=== PATIENT | male | born 1995 | race Caucasian/White ===

== ENCOUNTER 2019-05-03 06:30 | Day surgery (SDC) | payer OTHER ==
[~2019-05-03 06:30] MED LIST: CEFAZOLIN SODIUM IN 0.9 % NACL 2 GM/100 ML BAG IV ONE
[2019-05-03] MEDS ORDERED: fentaNYL 100 MCG/2 ML VIAL IVP ONE (06:31)
[2019-05-03] MEDS ORDERED: PROPOFOL 200 MG/20 ML VIAL IVP ONE (06:31)
[2019-05-03] MEDS ORDERED: ACETAMINOPHEN 1,000 MG/100 ML 100 ML IV ONE (06:31)
[2019-05-03] MEDS ORDERED: LIDOCAINE-MPF 2% 5 ML VIAL IM ONE (06:31)
[2019-05-03] MEDS ORDERED: GLYCOPYRROLATE 1 MG/5 ML VIAL IVP ONE (06:31)
[2019-05-03] MEDS ORDERED: DEXAMETHASONE 4 MG/ML VIAL IVP ONE (06:31)
[2019-05-03] MEDS ORDERED: LACTATED RINGERS 1,000 ML IV ONE (06:46)
--- NOTE | 2019-05-03 07:21 | ANESTHESIA ---
Pre-Anesthesia VS, & Labs - Diagnosis symptomatic right ankle hardware - Procedure right ankle hardware removal Vital Signs: Temp Pulse Resp BP Pulse Ox 36.9 C 81 20 128/60 97 05/03/19 06:46 05/03/19 06:46 05/03/19 06:46 05/03/19 06:46 05/03/19 06:46 Height 6 ft 2 in Weight (kg) 90.72 kg Home Medications and Allergies Home Medications: Ambulatory Orders No Known Home Medications 04/25/19 No Known Home Medications 04/25/19 Allergies/Adverse Reactions: Allergies Allergy/AdvReac Type Severity Reaction Status Date / Time No Known Drug Allergies Allergy Verified 05/03/19 06:55 Anes History & Medical History - Anesthetic History Anesthesia Complications: reports: No previous complications Family history of Anesthesia Complications: Denies Family history of Malignant Hyperthermia: Denies - Medical History Cardiovascular: reports: None Pulmonary: reports: None Gastrointestinal: reports: None Urinary: reports: None Musculoskeletal: reports: Other Endocrine/Autoimmune: reports: None Blood Disorders: reports: None Skin: reports: None Smoking Status: Never smoker Psychosocial: reports: Alcohol (one glass x2 /week) - Surgical History Eyes Ears Nose Throat (EENT): Myringotomy (tubes), Tonsil/Adenoidectomy Orthopedic: Other Exam General: Alert, Oriented x3, Cooperative, No acute distress Dental: WNL Mouth Openin Fingerbreadth Neck Mobility: Normal Mallampati classification: I Respiratory: Lungs clear, Normal breath sounds, No respiratory distress, No accessory muscle use Cardiovascular: Regular rate, Normal S1, Normal S2, No murmurs Abdomen: Normal bowel sounds, Soft, No tenderness, No hepatospenomegaly, No masses Extremities: No clubbing, No cyanosis, No edema, Normal pulses, No tenderness/swelling Neurological: Normal gait, Normal speech, Strength at 5/5 X4 ext, Normal tone, Sensation intact, Cranial nerves 3-12 NL, Reflexes 2+ Mental/Cognitive Status: Alert/Oriented X3, Normal for patient Cognitive Status: Within normal limits Plan Anesthesia Type: General, MAC Regional Block: Per Surgeon's request for Post Op pain control Consent for Procedure(s) Verified and Reviewed: Yes Code Status: Attempt Resuscitation ASA classification: 1-Healthy patient Is this case an emergency?: No
[2019-05-03] MEDS ORDERED: BUPIVACAINE 0.25% PF 30 ML VIAL ONE (07:26)
[2019-05-03] MEDS ORDERED: BUPIVACAINE 0.25% PF 30 ML VIAL SUBQ ONE ×2 (08:07)
[2019-05-03] MEDS ORDERED: ONDANSETRON 4 MG/2 ML VIAL IVP PRN (08:36)
[2019-05-03] MEDS ORDERED: oxyCODONE 5 MG TABLET PO PRN (08:36)
--- NOTE | 2019-05-03 08:43 | OPERATIVE REPORT ---
Operative Report - General Procedure Date: 05/03/19 Planned Procedure: Right ankle syndesmosis screw removal Pre-Op Diagnosis: Right ankle syndesmosis screws Procedure Performed: Right ankle syndesmosis screw removal Post Op Diagnosis: Right ankle syndesmosis screws - Procedure Note Primary Surgeon: SALVADOR HENRY Anesthesia Technique: General LMA Estimated Blood Loss (mL): 1 Indications: 24-year-old male who sustained a right ankle fracture while camping in [place] in January 2019. He underwent open reduction and internal fixation with trans- syndesmotic screw placement on [address] Jaime Morfin at [place], [place]. He followed up with orthopedics at [facility] for postoperative care. We discussed planned syndesmotic screw removal at 12 weeks postop. Risks benefits and alternatives to the procedure were discussed including bleeding, infection, screw breakage, with inability to remove the distal part of the screw, damage to surrounding structures including nerves, blood vessels, muscles and tendons, intraoperative fracture, pain, as well as blood clot, pulmonary embolus, stroke, heart attack, . Questions were answered, written consent was signed. Findings: 2 syndesmotic screws, removed without difficulty Complications: None - Other Other Information/Narrative: Tourniquet time: 25 minutes, 250 mmHg, right thigh Description of the procedure: The patient was met in the preoperative holding area, preoperative paperwork procedure and patient identity were confirmed. The operative site was initialed per normal protocol. The patient met with anesthesia and was then transferred to the operating room, he was transferred to the operating table, and general anesthesia was induced. A small bump was placed under the ipsilateral hip to help internally rotate the operative ankle. A nonsterile tourniquet was placed high on the right thigh. The right lower extremity was prepped and draped in the usual sterile fashion, and following preparation a surgical timeout was conducted verifying patient identity, procedure, surgical site, equipment, and that preoperative antibiotics have been administered in the forms of 2 g IV cefazolin. Once satisfied this was done, we proceeded with the surgery. The right lower extremity was exsanguinated using an Esmarch bandage and the tourniquet was inflated. Mini C arm fluoroscopy was used to localize the 2 screws to be removed. A small approximately 3 cm incision was planned out over the lateral ankle using the previous surgical incision. The skin was sharply divided using a 15 blade, and then a [place] in combination with sharp dissection was used to isolate the distal most screw head. This was easily found. Correct screw identification was confirmed using fluoroscopy and then the screw was backed out using a T 15 starDrive without difficulty. The screw track was then curetted, and we turned our attention to the next proximal screw. This was aga in freed up using a combination of [place] manipulation and sharp dissection and the screw was again removed using the a T 15 stardrive without difficulty. The screw tract was also curetted. The wound was then copiously irrigated. Final fluoro shots were take, including an ER stress view to confirm syndesmotic stability. The deep tissues were closed over the plate using interrupted 3-0 Monocryl in [id number] fashion, the subcutaneous tissue were closed with buried 3-0 Monocryl interrupted sutures and then the skin was closed with a running 3-0 Monocryl in subcuticular fashion. Mastisol and Steri-Strips were placed, and 10 mL of quarter percent Marcaine plain was infiltrated around the incision for postoperative pain control. Xeroform was placed over the incision followed by 4 x 4 dressing and Tegaderm. An Valentino wrap was placed from the foot to the mid calf, and then the extremity was placed back into a boot. Anesthesia was reversed, the patient was transferred to the hospital bed and taken to recovery area in stable condition. There were no complications. The patient tolerated the procedure well. Postoperative plan: 1. Discharge from same-day surgery criteria met 2. NWB in boot until follow-up 3. ASA 325mg daily x 14 days for DVT ppx 4. F/U in clinic in 1.5 weeks for wound check and advancement of activity
[2019-05-03 09:55] VITALS: BP 115/65
== END 2019-05-03 06:31 | disposition home or self-care (01) ==
LOC: SDS 06:30
PROVIDERS: ATTEND Orthopaedic Surgery
PROC: 0QPJ04Z Removal of Internal Fixation Device from Right Fibula, Open Approach (ICD-10-PCS; principal; 2019-05-03 08:00)
DX: S82.891D Other fracture of right lower leg, subsequent encounter for closed fracture with routine healing (principal)